=== PATIENT | female | born 1980 | race African-American/Black ===

== ENCOUNTER 2017-06-28 16:10 | Emergency (ER) | payer SELFPAY ==
[~2017-06-28] VITALS: Ht 172.7 cm; Wt 120.0 kg
[~2017-06-28 16:10] MED LIST: ABILIFY10 MG OR; AMBIEN10 MG PO; AMOXICILLIN500 MG PO; BACTRIM DS1 TAB PO; BENTYL10 MG PO; CELEXA20 M1 PO; DOXYCYC MONO100 M1 OR; MACRODANTIN100 MG OR; MOTRIN800 MG PO; MUPIROCIN2 % EX; NAPROSYN500 MG PO; PYRIDIUM200 MG PO; ROBITUSSIN AC10 ML PO; THORAZINE25 MG OR; TRAZODONE50 MG PO
[2017-06-28 16:44] LABS: HEMATOCRIT 28.4 % (37.0-47.0); HEMOGLOBIN 8.4 g/dl (12.0-16.0); IMMATURE GRANULOCYTES 0.2 % (0.0-1.0); MEAN CELL VOLUME 71.2 fL CALC (80.0-100.0); MEAN CORPUSCULAR HGB 21.1 pG CALC (26.0-32.0); MEAN CORPUSCULAR HGB CONC 29.6 g/L CALC (32.0-36.0); NEUT# 2.8 thou/uL (2.00-7.15); RED BLOOD COUNT 3.99 mill/uL (4.20-5.60); RED CELL DISTRI WIDTH 18.3 % (11.5-15.5)
[2017-06-28 17:15] LABS: ANION GAP 15 (6-22 (CALC)); BUN 9 mg/dL (7-17); BUN/CREATININE RATIO 13 (12-20 (CALC)); CALCIUM 9.1 mg/dL (8.4-10.2); CALCULATED LDLCHOLESTEROL 90 mg/dL (62-129 (CALC)); CARBON DIOXIDE 22 mmol/l (22-30); CHLORIDE 108 mmol/l (95-108); CHOLESTEROL HDL RATIO 2.8 (<4.4 (CALC)); CREATININE 0.7 mg/dL (0.5-1.0); GFR > 60 ML/MIN (>=60 (CALC)); GFR FOR AFR.AMER. > 60 ML/MIN (>=60 (CALC)); GLUCOSE 128 mg/dL (65-105); HDL CHOLESTEROL 62 mg/dL (>=40); POTASSIUM 3.8 mmol/l (3.5-5.1); SODIUM 141 mmol/l (137-146); TOTAL CHOLESTEROL 172 mg/dl (0-199); TOTAL TRIGLYCERIDES 95 mg/dl (30-149); VLDL CHOLESTROL 19 mg/dl (1-41 (CALC))
[2017-06-28] MEDS ORDERED: FERROUS SULF325 M2 PO (18:07)
[2017-06-28 18:10] VITALS: BP 105/72
== END 2017-06-28 18:22 | disposition home or self-care (01) | DRG 312 ==
LOC: ED 16:10
PROVIDERS: Family Medicine
DX: R55 Syncope and collapse (principal); R42 Dizziness and giddiness; R06.02 Shortness of breath; R07.9 Chest pain, unspecified; Y93.E1 Activity, personal bathing and showering; Y92.002 Bathroom of unspecified non-institutional (private) residence as the place of occurrence of the external cause; Z72.0 Tobacco use

== ENCOUNTER 2017-10-17 23:45 | Emergency (ER) | payer SELFPAY ==
[~2017-10-17] VITALS: Ht 172.7 cm; Wt 118.6 kg
[~2017-10-17 23:45] MED LIST changes: +FERROUS SULF325 M2 PO
[2017-10-18] MEDS ORDERED: ULTRAM50 M1 PO (00:24)
[2017-10-18 00:27] VITALS: BP 138/88
== END 2017-10-18 00:35 | disposition home or self-care (01) | DRG 563 ==
LOC: ED 23:45
DX: S96.911A Strain of unspecified muscle and tendon at ankle and foot level, right foot, initial encounter (principal)

== ENCOUNTER 2017-11-12 22:49 | Emergency (ER) | payer BC ==
[~2017-11-12] VITALS: Ht 172.7 cm; Wt 116.6 kg
[~2017-11-12 22:49] MED LIST changes: +ULTRAM50 M1 PO
[2017-11-12] MEDS ORDERED: FLEXERIL PO (23:20)
[2017-11-12] MEDS ORDERED: LORTAB 1010 MG PO (23:20)
[2017-11-12 23:55] VITALS: BP 128/87
== END 2017-11-12 23:55 | disposition home or self-care (01) | DRG 563 ==
LOC: ED 22:49
DX: S39.012A Strain of muscle, fascia and tendon of lower back, initial encounter (principal); F17.290 Nicotine dependence, other tobacco product, uncomplicated; X58.XXXA Exposure to other specified factors, initial encounter

== ENCOUNTER 2018-02-21 12:17 | Emergency (ER) | payer BC ==
[~2018-02-21] VITALS: Ht 172.7 cm; Wt 112.2 kg
[~2018-02-21 12:17] MED LIST changes: +FLEXERIL PO; +LORTAB 1010 MG PO
[2018-02-21] MEDS ORDERED: ASPERCREME LIDOCA41 TOP (12:44)
[2018-02-21 12:49] VITALS: BP 141/91
== END 2018-02-21 13:05 | disposition home or self-care (01) | DRG 563 ==
LOC: ED 12:17
DX: S39.012S Strain of muscle, fascia and tendon of lower back, sequela (principal); F17.210 Nicotine dependence, cigarettes, uncomplicated; M54.5 Low back pain; V89.2XXS Person injured in unspecified motor-vehicle accident, traffic, sequela; M79.605 Pain in left leg; R05 Cough

== ENCOUNTER 2018-02-26 11:07 | Emergency (ER) | payer BC ==
[~2018-02-26] VITALS: Ht 172.7 cm; Wt 100.0 kg
[~2018-02-26 11:07] MED LIST changes: +ASPERCREME LIDOCA41 TOP
[2018-02-26 11:21] VITALS: BP 160/99
== END 2018-02-26 11:55 | disposition home or self-care (01) | DRG 552 ==
LOC: ED 11:07
DX: M62.830 Muscle spasm of back (principal); F17.290 Nicotine dependence, other tobacco product, uncomplicated; M54.5 Low back pain; M54.6 Pain in thoracic spine; G89.29 Other chronic pain

== ENCOUNTER 2018-03-18 18:02 | Emergency (ER) | payer OTHER, BC ==
[~2018-03-18] VITALS: Ht 172.7 cm; Wt 110.4 kg
[2018-03-18] MEDS ORDERED: ULTRAM50 M1 PO (19:30)
[2018-03-18] MEDS ORDERED: FLEXERIL PO (19:30)
[2018-03-18 19:39] VITALS: BP 152/95
== END 2018-03-18 19:40 | disposition home or self-care (01) | DRG 950 ==
LOC: ED 18:02
DX: S13.4XXD Sprain of ligaments of cervical spine, subsequent encounter (principal); V49.9XXD Car occupant (driver) (passenger) injured in unspecified traffic accident, subsequent encounter

== ENCOUNTER 2018-07-19 15:29 | Emergency (ER) | payer SELFPAY ==
[~2018-07-19] VITALS: Ht 172.7 cm; Wt 116.0 kg
[2018-07-19 16:06] VITALS: BP 127/86
== END 2018-07-19 16:11 | disposition home or self-care (01) | DRG 761 ==
LOC: ED 15:29
DX: N92.0 Excessive and frequent menstruation with regular cycle (principal); I10 Essential (primary) hypertension; G89.29 Other chronic pain; M54.9 Dorsalgia, unspecified; F17.210 Nicotine dependence, cigarettes, uncomplicated

== ENCOUNTER 2018-12-26 07:56 | Emergency (ER) | payer BC ==
[~2018-12-26] VITALS: Ht 172.7 cm; Wt 90.6 kg
[2018-12-26 08:29] VITALS: BP 128/94
== END 2018-12-26 08:34 | disposition home or self-care (01) | DRG 759 ==
LOC: ED 07:56
DX: B37.3 Candidiasis of vulva and vagina (principal); I10 Essential (primary) hypertension

== ENCOUNTER 2019-02-03 19:01 | Emergency (ER) | payer BC ==
[~2019-02-03] VITALS: Ht 172.7 cm; Wt 94.0 kg
[2019-02-03] MEDS ORDERED: DIFLUCAN150 MG PO (19:19)
[2019-02-03] MEDS ORDERED: MONISTAT1 VA (19:19)
[2019-02-03 19:26] VITALS: BP 151/107
== END 2019-02-03 19:26 | disposition home or self-care (01) | DRG 759 ==
LOC: ED 19:01
DX: N76.0 Acute vaginitis (principal); I10 Essential (primary) hypertension; Z53.20 Procedure and treatment not carried out because of patient's decision for unspecified reasons

== ENCOUNTER 2019-06-25 16:35 | Emergency (ER) | payer BC ==
[~2019-06-25] VITALS: Ht 172.7 cm; Wt 95.0 kg
[~2019-06-25 16:35] MED LIST changes: +DIFLUCAN150 MG PO; +MONISTAT1 VA
[2019-06-25 17:36] LABS: MEAN CORPUSCULAR HGB 30.9 pG CALC (26.0-32.0); MEAN CORPUSCULAR HGB CONC 32.5 g/L CALC (32.0-36.0); NEUT# 1.78 thou/uL (2.00-7.15); RED BLOOD COUNT 3.92 mill/uL (4.20-5.60); RED CELL DISTRI WIDTH 14.4 % (11.5-15.5)
[2019-06-25 17:37] LABS: HEMATOCRIT 37.2 % (37.0-47.0); HEMOGLOBIN 12.1 g/dl (12.0-16.0); MEAN CELL VOLUME 94.9 fL CALC (80.0-100.0)
[2019-06-25 17:45] LABS: ALBUMIN 3.8 g/dL (3.2-5.0); ALKALINE PHOSPHATASE 50 u/l (38-126); ANION GAP 11 (6-22 (CALC)); BILIRUBIN, TOTAL 0.2 mg/dL (0.0-1.4); BUN 10 mg/dL (7-17); BUN/CREATININE RATIO 15 (12-20 (CALC)); CARBON DIOXIDE 25 mmol/l (22-30); CHLORIDE 108 mmol/l (95-108); CREATININE 0.7 mg/dL (0.5-1.0); GFR > 60 ML/MIN (>=60 (CALC)); GFR FOR AFR.AMER. > 60 ML/MIN (>=60 (CALC)); LIPASE 79 u/l (23-300); POTASSIUM 4.4 mmol/l (3.5-5.1); SGOT/AST 27 u/l (14-36); SODIUM 139 mmol/l (137-146); TOTAL PROTEIN 6.9 g/dL (6.3-8.2)
[2019-06-25 18:01] LABS: URINE BILIRUBIN - DIPSTICK NEGATIVE (NEGATIVE); URINE BLOOD DIPSTICK LARGE (NEGATIVE); URINE COLOR YELLOW; URINE GLUCOSE - DIPSTICK NEGATIVE (NEGATIVE); URINE KETONE NEGATIVE (NEGATIVE); URINE LEUK ESTERASE NEGATIVE (NEGATIVE); URINE NITRITE - DIPSTICK NEGATIVE (Negative); URINE PH 8.5 (4.5-8.0); URINE PROTEIN - DIPSTICK NEGATIVE (NEG-TRACE); URINE UROBILINOGEN - DIPSTICK 0.2 E.U./dL (0.2)
[2019-06-25 18:05] LABS: URINE RBC 25-50 RBC/hpf (0-5); URINE SQUAMOUS EPITHELIAL CELL FEW EPI/hpf (0-FEW)
[2019-06-25 18:16] VITALS: BP 125/87
== END 2019-06-25 18:20 | disposition home or self-care (01) | DRG 392 ==
LOC: ED 16:35
DX: R10.84 Generalized abdominal pain (principal); R11.0 Nausea; I10 Essential (primary) hypertension; F17.200 Nicotine dependence, unspecified, uncomplicated

== ENCOUNTER 2019-12-10 | Emergency (ER) | payer BC ==
[2019-12-10 17:08] LABS: URINE BILIRUBIN - DIPSTICK NEGATIVE (NEGATIVE); URINE BLOOD DIPSTICK NEGATIVE (NEGATIVE); URINE COLOR YELLOW; URINE GLUCOSE - DIPSTICK NEGATIVE (NEGATIVE); URINE KETONE NEGATIVE (NEGATIVE); URINE LEUK ESTERASE NEGATIVE (NEGATIVE); URINE NITRITE - DIPSTICK NEGATIVE (Negative); URINE PROTEIN - DIPSTICK 30 mg/dL (NEG-TRACE); URINE SPECIFIC GRAVITY 1.025; URINE UROBILINOGEN - DIPSTICK 0.2 E.U./dL (0.2)
[2019-12-10 17:46] LABS: URINE SQUAMOUS EPITHELIAL CELL FEW EPI/hpf (0-FEW)
== END 2019-12-10 18:10 | disposition home or self-care (01) | DRG 759 ==
PROVIDERS: Family Medicine
DX: B37.3 Candidiasis of vulva and vagina (principal); I10 Essential (primary) hypertension; F17.200 Nicotine dependence, unspecified, uncomplicated

== ENCOUNTER 2020-01-12 | Emergency (ER) | payer BC ==
[2020-01-12 13:12] LABS: URINE BILIRUBIN - DIPSTICK NEGATIVE (NEGATIVE); URINE BLOOD DIPSTICK LARGE (NEGATIVE); URINE COLOR YELLOW; URINE GLUCOSE - DIPSTICK NEGATIVE (NEGATIVE); URINE KETONE NEGATIVE (NEGATIVE); URINE LEUK ESTERASE NEGATIVE (NEGATIVE); URINE PROTEIN - DIPSTICK TRACE mg/dL (NEG-TRACE); URINE UROBILINOGEN - DIPSTICK 0.2 E.U./dL (0.2)
[2020-01-12 13:14] LABS: URINE NITRITE - DIPSTICK POSITIVE (Negative)
[2020-01-12 13:21] LABS: URINE RBC 25-50 RBC/hpf (0-5)
[2020-01-12 13:23] LABS: URINE BACTERIA MANY hpf
[2020-01-12 13:26] LABS: URINE SQUAMOUS EPITHELIAL CELL FEW EPI/hpf (0-FEW)
[2020-01-12 13:28] LABS: URINE MUCUS FEW hpf (NONE-FEW)
[2020-01-12] MEDS ORDERED: CEPHALEXIN500 M1 PO (13:29)
== END 2020-01-12 13:33 | disposition home or self-care (01) | DRG 690 ==
PROVIDERS: Emergency Medicine
DX: N39.0 Urinary tract infection, site not specified (principal); B96.1 Klebsiella pneumoniae [K. pneumoniae] as the cause of diseases classified elsewhere; N94.3 Premenstrual tension syndrome; I10 Essential (primary) hypertension

== ENCOUNTER 2020-01-15 | Emergency (ER) | payer BC ==
[~2020-01-15] MED LIST changes: +CEPHALEXIN500 M1 PO
[2020-01-15] MEDS ORDERED: VOLTAREN1%GEL TOP (17:33)
== END 2020-01-15 18:30 | disposition home or self-care (01) | DRG 556 ==
DX: M79.671 Pain in right foot (principal); I10 Essential (primary) hypertension

== ENCOUNTER 2020-02-03 16:50 | Emergency (ER) | payer BC ==
[~2020-02-03 16:50] MED LIST changes: +VOLTAREN1%GEL TOP
[2020-02-03 17:30] VITALS: BP 121/80
== END 2020-02-03 17:30 | disposition home or self-care (01) | DRG 761 ==
LOC: ED 16:50
DX: N94.6 Dysmenorrhea, unspecified (principal); I10 Essential (primary) hypertension

== ENCOUNTER 2020-11-28 11:22 | Emergency (ER) | payer BC ==
[~2020-11-28] VITALS: Ht 172.7 cm; Wt 140.0 kg
[2020-11-28] MEDS ORDERED: OXYCODO-APAP1 TA2 PO (11:36)
[2020-11-28] MEDS ORDERED: NAPROXEN500 MG PO (12:32)
[2020-11-28 12:53] VITALS: BP 129/81
== END 2020-11-28 12:53 | disposition home or self-care (01) | DRG 563 ==
LOC: ED 11:22
DX: S93.602A Unspecified sprain of left foot, initial encounter (principal); S93.402A Sprain of unspecified ligament of left ankle, initial encounter; I10 Essential (primary) hypertension; X50.0XXA Overexertion from strenuous movement or load, initial encounter; Y93.89 Activity, other specified; Y92.009 Unspecified place in unspecified non-institutional (private) residence as the place of occurrence of the external cause

== ENCOUNTER 2021-03-10 22:24 | Emergency (ER) | payer BC ==
[~2021-03-10] VITALS: Ht 172.7 cm; Wt 104.5 kg
[~2021-03-10 22:24] MED LIST changes: +NAPROXEN500 MG PO; +OXYCODO-APAP1 TA2 PO
[2021-03-10 22:53] LABS: HEMATOCRIT 32.6 % (37.0-47.0); HEMOGLOBIN 10.4 g/dl (12.0-16.0); IMMATURE GRANULOCYTES 0.2 % (0.0-5.0); MEAN CORPUSCULAR HGB 28.4 pG CALC (26.0-32.0); MEAN CORPUSCULAR HGB CONC 31.9 g/dL CAL (32.0-36.0); NEUT# 1.84 thou/uL (2.00-7.15); RED BLOOD COUNT 3.66 mill/uL (4.20-5.60); RED CELL DISTRI WIDTH 15.3 % (11.5-15.5)
[2021-03-10 22:57] LABS: MEAN CELL VOLUME 89.1 fL CALC (80.0-100.0)
[2021-03-10 23:09] LABS: ALBUMIN 3.8 g/dL (3.2-5.0); ALKALINE PHOSPHATASE 53 u/l (38-126); ANION GAP 9 (6-22 (CALC)); BILIRUBIN, TOTAL 0.2 mg/dL (0.0-1.4); BUN 13 mg/dL (7-17); BUN/CREATININE RATIO 16 (12-20 (CALC)); CARBON DIOXIDE 28 mmol/l (22-30); CHLORIDE 106 mmol/l (95-108); CREATININE 0.8 mg/dL (0.5-1.0); GFR > 60 ML/MIN (>=60 (CALC)); GFR FOR AFR.AMER. > 60 ML/MIN (>=60 (CALC)); POTASSIUM 3.7 mmol/l (3.5-5.1); SGOT/AST 26 u/l (14-36); SODIUM 139 mmol/l (137-146); TOTAL PROTEIN 6.8 g/dL (6.3-8.2)
[2021-03-10] MEDS ORDERED: IMODIUM2 MG PO (23:23)
[2021-03-10 23:28] VITALS: BP 169/98
== END 2021-03-10 23:32 | disposition home or self-care (01) | DRG 392 ==
LOC: ED 22:24
PROVIDERS: Family Medicine
DX: R19.7 Diarrhea, unspecified (principal); I10 Essential (primary) hypertension

== ENCOUNTER 2021-05-28 08:37 | Emergency (ER) | payer BC ==
[~2021-05-28] VITALS: Ht 172.7 cm; Wt 100.0 kg
[~2021-05-28 08:37] MED LIST changes: +IMODIUM2 MG PO
[2021-05-28 09:44] VITALS: BP 129/82
== END 2021-05-28 09:44 | disposition left against medical advice (07) | DRG 556 ==
LOC: ED 08:37
DX: M25.561 Pain in right knee (principal); I10 Essential (primary) hypertension; Z91.19 Patient's noncompliance with other medical treatment and regimen

== ENCOUNTER 2021-07-28 05:49 | Emergency (ER) | payer BC ==
[~2021-07-28] VITALS: Ht 172.7 cm; Wt 105.0 kg
[2021-07-28] MEDS ORDERED: VOLTAREN - GENE75 MG PO (06:55)
[2021-07-28 07:02] VITALS: BP 156/95
== END 2021-07-28 07:12 | disposition home or self-care (01) | DRG 558 ==
LOC: ED 05:49
DX: M71.21 Synovial cyst of popliteal space [Baker], right knee (principal); I10 Essential (primary) hypertension

== ENCOUNTER 2022-08-13 11:18 | Emergency (ER) | payer MEDICAID ==
[~2022-08-13] VITALS: Ht 172.7 cm; Wt 102.7 kg
[~2022-08-13 11:18] MED LIST changes: +VOLTAREN - GENE75 MG PO
[2022-08-13 11:33] VITALS: BP 137/93
[2022-08-13 12:04] LABS: HEMATOCRIT 34.3 % (37.0-47.0); HEMOGLOBIN 11.1 g/dl (12.0-16.0); IMMATURE GRANULOCYTES 0.2 % (0.0-5.0); MEAN CELL VOLUME 86.2 fL CALC (80.0-100.0); MEAN CORPUSCULAR HGB 27.9 pG CALC (26.0-32.0); MEAN CORPUSCULAR HGB CONC 32.4 g/dL CAL (32.0-36.0); NEUT# 4.34 thou/uL (2.00-7.15); RED BLOOD COUNT 3.98 mill/uL (4.20-5.60); RED CELL DISTRI WIDTH 15.6 % (11.5-15.5)
[2022-08-13 12:05] LABS: URINE BILIRUBIN - DIPSTICK NEGATIVE (NEGATIVE); URINE BLOOD DIPSTICK TRACE-INTACT (NEGATIVE); URINE COLOR YELLOW; URINE GLUCOSE - DIPSTICK NEGATIVE (NEGATIVE); URINE KETONE 15 mg/dL (NEGATIVE); URINE LEUK ESTERASE NEGATIVE (NEGATIVE); URINE PH 7.5 (4.5-8.0); URINE PROTEIN - DIPSTICK NEGATIVE (NEG-TRACE); URINE UROBILINOGEN - DIPSTICK 0.2 E.U./dL (0.2)
[2022-08-13 12:22] LABS: ALKALINE PHOSPHATASE 69 u/l (38-126); BUN 6 mg/dL (7-17); BUN/CREATININE RATIO 9 (12-20 (CALC)); CHLORIDE 108 mmol/l (95-108); CREATININE 0.7 mg/dL (0.5-1.0); GFR FOR AFR.AMER. > 60 ML/MIN (>=60 (CALC)); GFR OTHER RACES > 60 ML/MIN (>=60 (CALC)); POTASSIUM 3.7 mmol/l (3.5-5.1); SGOT/AST 31 u/l (14-36); SODIUM 140 mmol/l (137-146); TOTAL PROTEIN 7.9 g/dL (6.3-8.2)
[2022-08-13 12:22] LABS: URINE NITRITE - DIPSTICK NEGATIVE (Negative)
[2022-08-13 12:24] LABS: ALBUMIN 4.7 g/dL (3.2-5.0); ANION GAP 15 (6-22 (CALC)); CARBON DIOXIDE 21 mmol/l (22-30)
[2022-08-13] MEDS ORDERED: TAM75CAP PO (13:54)
[2022-08-13] MEDS ORDERED: PAXLOVID PO (13:54)
[2022-08-13] MEDS ORDERED: ZOFRAN4 MG/TAB PO (13:55)
[2022-08-13 13:56] VITALS: BP 131/90
[2022-08-13 14:00] VITALS: BP 137/89
[2022-08-13 14:36] VITALS: BP 137/89
== END 2022-08-13 14:51 | disposition home or self-care (01) ==
LOC: ED 11:18
PROVIDERS: Family Medicine
DX: U07.1 COVID-19 (principal); J11.1 Influenza due to unidentified influenza virus with other respiratory manifestations; I10 Essential (primary) hypertension

== ENCOUNTER 2023-10-25 11:59 | Emergency (ER) | payer BC ==
[~2023-10-25] VITALS: Ht 172.7 cm; Wt 104.0 kg
[~2023-10-25 11:59] MED LIST changes: +PAXLOVID PO; +TAM75CAP PO; +ZOFRAN4 MG/TAB PO
[2023-10-25] MEDS ORDERED: TRAMADOL HYDROC50 M1 PO (12:30)
[2023-10-25] MEDS ORDERED: NAPROXEN500 MG PO (12:30)
[2023-10-25 13:03] VITALS: BP 140/86
== END 2023-10-25 13:16 | disposition home or self-care (01) | DRG 556 ==
LOC: ED 11:59
DX: M25.561 Pain in right knee (principal); I10 Essential (primary) hypertension